=== PATIENT | female | born 1955 | race Caucasian/White ===

== ENCOUNTER 2016-07-13 14:16 | Emergency (ER) | payer MEDICARE, MEDICAID ==
[~2016-07-13 14:16] MED LIST: EPINEPHrine 1 MG/10 ML (1:10,000) SYR IV ONE; SODIUM BICARBONATE 50 MEQ/50 ML (8.4%) PFS IV ONE
[2016-07-13 15:31] VITALS: BMI 25.7
--- NOTE | 2016-07-13 15:31 | EDPRACDOC ---
- General Information Stated Complaint: SICKNESS Time Seen by Provider: 07/13/16 15:04 - History of Present Illness HPI: PT PRESENTS WITH GENERALIZED WEAKNESS BY EMS. SHE WAS BEING TRIAGED AND BECAME UNRESPONSIVE. LOST PULSES WHILE BEING TRANSPORTED TO A ROOM AFTER UNRESPONSIVENESS. CPR WAS IMMEDIATELY BEGUN WHEN PULSES LOST. IO WAS PLACED IN RIGHT TIBIA. PT INTUBATED WITH 7.0 TUBE. SHE REMAINED ASYSTOLE ON MONITOR THROUGHOUT CPR. CPR LASTED FROM 1435 UNTIL 1504. EDM Review of Systems - Review of Systems ROS Unobtainable: Yes Review of systems cannot be obtained due to the patient's medical condition - Physical Exam Oriented to: Unable to Test Last recorded Vital Signs: Oxygen Pulse Oxygen Saturation O2 Device Oxygen Flow Rate Fraction of Inspired Oxygen ( FIO2) - HEENT Head: negative: Deformity, Laceration Eye Exam: Other (PUPILS FIXED AND DILATED.). negative: Conjunctival Injection, Pale Conjunctiva - Respiratory/Cardiovascular Respiratory: Other (ARTIFICIAL RESPIRATIONS) Cardiovascular: Other (ABSENT CARDIAC ACTIVITY) - Integumentary Skin: Cool, Pale, Mottling - Neurologic Memory Impaired: Unable to Test Motor Function: Unable to Test Cranial Nerve: Unable to Test Cerebellar: Unable to Test ED Procedures - Intubation Informed of risks, benefits and alternatives described.: No Informed Consent Signed: Unable Indication: Respiratory Insufficiency, Airway Protection Intubation Date: 07/13/16 (1450) Time of Intubation: 14:50 Number of Attempts: 1 Ksenia Used: Yes Intubation Method: Oral Endotracheal Tube Size (cm): 7.0 Position at Lip: 22 ETCO2 Detector Positive: Yes Breath Sounds after Intubation: equal Intubation Complications: no complications - Interosseous Procedure Interosseous Procedure: LEFT TIBIAL IO PLACED. BETADINE APPLIED TO PROXIMAL TIBIA. 45MM 15 G IO PLACED WITH IO DRILL. - Departure Yes I personally saw and evaluated the patient. Disposition: Condition: Stable Final Diagnosis: Referrals: None,No Provider [Primary Care Provider] - One Week
== END 2016-07-13 15:04 | disposition expired ==
LOC: ED 14:16
CPT/HCPCS: 31500; 92950; 99291; J0171; J3490